=== PATIENT | male | born 1980 | race Caucasian/White ===

== ENCOUNTER 2016-11-20 13:13 | Emergency (ER) | payer OTHER ==
[~2016-11-20 13:13] MED LIST: KETALAR ONE; NACL 0.9% 1000 ML 2,000 ML ONE; ZEMURON IV ONE
[2016-11-20] MEDS ORDERED: NACL 0.9% 1000 ML 1,000 ML IV ONE ×2 (13:15→13:36)
[2016-11-20 13:26] LABS: Hematocrit 31.8 % (35.5-45.6); Mean Corpuscular HGB Conc 32 % (32-34); Mean Corpuscular Hemoglobin 32 pg (28-32); Mean Corpuscular Volume 103 fl (84-94); Platelet Count 184 K/mm3 (140-440); Red Blood Count 3.09 M/mm3 (3.65-5.03); Red Cell Distribution Width 12.7 % (13.2-15.2); White Blood Count 9.4 K/mm3 (4.5-11.0)
[2016-11-20] MEDS ORDERED: KETALAR IV ONE (13:35)
[2016-11-20] MEDS ORDERED: ZEMURON IV ONE (13:35)
[2016-11-20 13:36] LABS: INR 1.06 (0.87-1.13)
[2016-11-20] MEDS ORDERED: NACL 0.9% 1000 ML 2,000 ML ONE (13:36)
[2016-11-20 13:37] LABS: Partial Thromboplastin Time 29.2 Sec. (24.2-36.6)
[2016-11-20 13:41] LABS: Alanine Aminotransferase 23 units/L (7-56); Albumin/Globulin Ratio 1.2 %; Alkaline Phosphatase 56 units/L (35-129); Anion Gap 23 mmol/L; BUN/Creatinine Ratio 8.33; Bilirubin,Total 0.2 mg/dL (0.1-1.2); Blood Urea Nitrogen 10 mg/dL (9-20); Calcium 7.9 mg/dL (8.4-10.2); Carbon Dioxide 18 mmol/L (22-30); Glucose 195 mg/dL (75-100); Potassium 3.8 mmol/L (3.6-5.0); Sodium 137 mmol/L (137-145); Total Protein 5.5 g/dL (6.3-8.2)
[2016-11-20] MEDS ORDERED: fentaNYL DRIP Premix 2,000 MCG/100 ML BAG IV ONE (13:44)
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
[2016-11-20] MEDS ORDERED: ARTIFICIAL TEARS OPHTH OINT OU PRN (13:54)
[2016-11-20] MEDS ORDERED: VASELINE LIP THERAPY TP PRN (13:54)
[2016-11-20 13:58] LABS: Basophils % (Manual) 0 % (0.0-1.8); Blastocytes % (Manual) 0 %; Eosinophils % (Manual) 0 % (0.0-4.3)
[2016-11-20] MEDS ORDERED: NACL 0.9% 1000 ML 2,000 ML IV ONE (13:58)
[2016-11-20 13:59] LABS: Anisocytosis Few; Diff Status Complete
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
[2016-11-20] MEDS ORDERED: NACL 0.9% 500 ML IV SCH (14:00)
[2016-11-20] MEDS ORDERED: fentaNYL DRIP Premix 2,000 MCG/100 ML BAG IV SCH (14:00)
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
--- NOTE | 2016-11-20 14:00 | XRay Report ---
AP PELVIS: AP view of the pelvis shows normal pelvic contour and soft tissues. The hips are symmetric and within normal limits as are the sacroiliac joints. IMPRESSION: Normal pelvis.
[2016-11-20 14:13] LABS: Urine Drugs of Abuse Note Disclamer
[2016-11-20 14:21] LABS: Bilirubin,Urine NEG (Negative)
[2016-11-20 14:22] LABS: Blood,Urine LG (Negative); Ketones,Urine NEG (Negative); Leukocyte Esterase,Urine NEG (Negative); Mucus,Urine FEW /HPF; Nitrite,Urine NEG (Negative); RBC,Urine > 182.0 /HPF (0.0-6.0)
[2016-11-20 14:26] VITALS: BP 105/70
== END 2016-11-20 14:30 | disposition other institution (70) ==
LOC: ED 13:13
DX: S71.101A Unspecified open wound, right thigh, initial encounter (principal); S81.001A Unspecified open wound, right knee, initial encounter; S31.819A Unspecified open wound of right buttock, initial encounter; S31.109A Unspecified open wound of abdominal wall, unspecified quadrant without penetration into peritoneal cavity, initial encounter; S61.200A Unspecified open wound of right index finger without damage to nail, initial encounter; S61.207A Unspecified open wound of left little finger without damage to nail, initial encounter; I95.9 Hypotension, unspecified; W34.09XA Accidental discharge from other specified firearms, initial encounter; Y93.9 Activity, unspecified; Y99.9 Unspecified external cause status; Y92.89 Other specified places as the place of occurrence of the external cause
CPT/HCPCS: 31500; 36415; 51702; 71010; 72170; 73551; 80053; 80307; 81001; 85007; 85025; 85610; 85730; 86850; 86900; 86901; 96360; 99285; G0480; J3010; J7030; 80320; 94002